=== PATIENT | male | born 1960 | race Caucasian/White ===

== ENCOUNTER 2023-01-01 02:05 | Outpatient (CLI) | payer MEDICAID, SELFPAY ==
[2023-01-01] MEDS: Inhaler, Assist Device 1 EACH MC (14:57)
[2023-01-01] MEDS: Albuterol HFA 18 GM 200 PUFF INH IH (14:57)
--- NOTE | 2023-01-02 10:56 | W.PFT ---
Date of service: 01/01/23 Time of Service: 13:42 Pulmonary Function Test Result Indications: COPD Interpretation Spirometry: There is moderate airflow limitation. There is no significant bronchodilator response. The FVC is low, likely due to obstruction. Lung Volumes: There is air trapping Diffusion Capacity: Decreased diffusion Airway Pressure: Normal airways resistance Impression Moderate airflow obstruction with a decreased diffusion and air trapping. This may be consistent with COPD with emphysema. Clinical Correlation therefore is recommended.
== END 2023-01-01 02:06 | disposition home or self-care (01) ==
PROVIDERS: PCP Nurse Practitioner Women's Health; Visit Provider Student in an Organized Health Care Education/Training Program
DX: J44.9 Chronic obstructive pulmonary disease, unspecified (principal)
CPT/HCPCS: 94060; 94726; 94729

== ENCOUNTER → 2023-06-17 01:13 | Outpatient (CLI) | payer MEDICAID, SELFPAY ==
--- NOTE | 2023-06-17 13:44 | DI.US_ITS ---
APPROVED REPORT EXAM: Comprehensive 2D, Doppler, and color-flow Echocardiogram Patient Location: Out-Patient [facility] [employer] Operator: Lorie Llamas RDCS (AE) Indications: Dyspnea, Resp Failure,Smoker Other Information Study Quality: Fair. Technically limited study due to body habitus, smoker. Conclusion Normal left ventricular wall thickness and chamber size. Ejection fraction is 50 to 55%. No segment al wall motion abnormalities are seen Normal right ventricular size and systolic function Both atria are normal in size There is no structural or hemodynamically significant valvular disease Right ventricular systolic pressure could not be estimated Wall motion Left Ventricle The left ventricle is normal size. Left ventricular systolic function is normal There is normal left ventricular wall thickness. No segmental wall motion abnormalities There is no ventricular septal def ect visualized. LVEF is50- 55%. Right Ventricle The right ventricle is normal size. The right ventricular systolic function is normal. Atria The left atrium size is normal. The right atrium size is normal. The interatrial septum is intact wit h no evidence for an atrial septal defect. Aortic Valve The aortic valve is normal in structure. Aortic valve is trileaflet. There is no aortic valvular sten osis. No aortic regurgitation is present. Mitral Valve The mitral valve is normal in structure. No evidence of mitral valve stenosis. Trace mitral regurgita tion. Tricuspid Valve The tricuspid valve is normal in structure. There is no tricuspid valve stenosis. Trace tricuspid reg urgitation. Unable to assess PA pressure. Pulmonic Valve The pulmonary valve is normal in structure. There is no pulmonic valvular stenosis. Trace pulmonic re gurgitation. Great Vessels Aortic root is mildly dilated. The ascending aorta is normal in size. Aortic arch is not well visua lized. IVC is normal in size and collapses >50% with inspiration. Pericardium There is no pericardial effusion. 2D Dimensions IVSD d PLAX 0.96 cm M: 0.6-1.2 Ao Root d 3.89 cm M: 3.1 - 3.7 LVPW d PLAX 1.01 cm M: 0.6 - 1.2 Ao Asc Diam d 3.30 cm M: 2.6 - 3.4 LVID d PLAX 5.04 cm M: 4.2 - 5.8 LVDs 3.75 cm M: 2.5 - 4.0 LV EF Teichholz 50.2 % FS 25.62 % LV EDV (Teich) 120.2 mL LV ESV (Teich) 59.9 mL M-Mode TAPSE 2.54 cm (M/F) >1.7 Auto EF LV EDV A4C 139.1 mL LV EDV A2C 158.1 mL LV EDV BP LV ESV A4C 72.0 mL LV ESV A2C 80.3 mL LV ESV BP LVEF(%) A4C 48.2 % LVEF(%) A2C 49.2 % LVEF(%) BP LV SV A4C 67.1 ml LV SV A2C 77.8 ml LV SV BP LV CO A4C 5.6 L/min LV CO A2C 6.1 L/min LV CO BP HR A4C 82.95 BPM HR A2C 78.61 BPM LV EDV Index (BP) LA Volume LA Length A4C 5.5 cm LA Length A2C 4.7 cm LA Area A4C s 20.10 cm2 LA Area A2C s 15.73 cm2 LA Vol A4C A-L 62.69 mL LA Vol A2C A-L 44.47 mL LA Vol Biplane A-L 56.8 mL LA Vol/BSA A4C A-L LA Vol/BSA A2C A-L LA Vol/BSA BP A-L 25.4 mL/m2 LA Vol A4C MOD 57.2 mL LA Vol A2C MOD 42.0 mL LA Vol BP MOD 52.5 mL RA Volume RA Area A4C 11.3 cm2 RA ESV A4C (A-L) 23.2mL RA Vol/BSA A4C A-L RA Length A4C 4.7 cm RA ESV A4C (MOD) 22.2mL LV Diastology MV E' medial 0.077 (>0.07 m/s) MV E Vmax 0.72 (0.4-1.3 m/s) MV E/E' MED 9.41 (<14) MV A Vmax 0.90 (0.4-1.3 m/s) MV E' lateral 0.102 (>0.1 m/s) E/A Ratio 0.8 MV E/E' LAT 7.05 (<14) MV E' Average 0.090 m/s MV E/E'(average) 8.06 Aortic Valve AoV Vmax 1.37 m/s LVOT Vmax 1.21 m/s AoV Peak Grad 7.5 mmHg LVOT Peak Grad 5.8 mmHg AoV Area (Vmax) 2.69 cm2 LVOT VTI 0.260 m AoV VTI 0.297 m LVOT Mean Grad 2.7 mmHg AoV Mean [place]. 0.96 m/s LVOT SV 79.06 mL AoV Mean Grad 4.2 mmHg LVOT Diam s 1.95 cm AoV Area (VTI) 2.66 cm2 Velocity Ratio 0.88 Mitral Valve MV DT 259 (160-240 msec) MV Vmax TIPS 0.88 m/s MV Mean Grad 1.6 (<2mmHg) MV VTI 0.233 m Pulmonary Valve PV Vmax 0.87 (0.5-1.5 m/s) PV Peak Grad 3.0 mmHg PV Mean Carson 0.56 m/s PV Mean Grad 1.5 mmHg Tricuspid Valve TV S' 0.16 m/s
== END ==
PROVIDERS: PCP Nurse Practitioner Women's Health; Visit Provider Student in an Organized Health Care Education/Training Program
DX: J96.90 Respiratory failure, unspecified, unspecified whether with hypoxia or hypercapnia (principal); F17.210 Nicotine dependence, cigarettes, uncomplicated; R06.09 Other forms of dyspnea
CPT/HCPCS: 93306